=== PATIENT | male | born 1995 | race Caucasian/White ===

== ENCOUNTER 2024-08-08 13:49 | Emergency (ER) | payer OTHER, SELFPAY ==
[~2024-08-08] VITALS: Ht 175.3 cm; Wt 89.4 kg
[~2024-08-08 13:49] MED LIST: IBUP200C27 PO
[2024-08-08 18:22] VITALS: BP 128/55; TEMP 97.8; O2SAT 99
== END 2024-08-08 20:59 | disposition home or self-care (01) ==
LOC: M ED 13:49
DX: M76.62 Achilles tendinitis, left leg (principal); Z79.1 Long term (current) use of non-steroidal anti-inflammatories (NSAID)